=== PATIENT | female | born 1970 | race Caucasian/White ===

== ENCOUNTER → 2017-01-20 | Outpatient (CLI) | payer BC ==
--- NOTE | 2017-01-21 13:03 | MM ---
Reason for exam: screening (asymptomatic). Last mammogram was performed 1 year ago. History: Patient had first child at age 35. Family history of breast cancer in maternal grandmother at age 50. Physical Findings: A clinical breast exam by your physician is recommended on an annual basis and results should be correlated with mammographic findings. MG Screening Mammo w CAD Bilateral CC and MLO view(s) were taken. Prior study comparison: January 07, 2016, bilateral MG 3d screening mammo w/cad. January 01, 2015, bilateral MG screening mammo w CAD. January 08, 2013, bilateral digital screening mammo w/CAD. The breast tissue is extremely dense which could obscure a lesion on mammography. Finding: There are typically benign round calcifications. There is no discrete abnormality. ASSESSMENT: Benign, BI-RAD 2 RECOMMENDATION: Routine screening mammogram of both breasts in 1 year.
== END | disposition home or self-care (01) ==
LOC: RADMAMWWP 10:01
PROVIDERS: ATTEND Obstetrics & Gynecology
DX: Z12.31 Encounter for screening mammogram for malignant neoplasm of breast (principal); Z80.3 Family history of malignant neoplasm of breast

== ENCOUNTER → 2018-02-17 | Outpatient (CLI) | payer BC ==
--- NOTE | 2018-02-20 12:26 | MM ---
Reason for exam: screening (asymptomatic). Last mammogram was performed 1 year and 1 month ago. History: Patient had first child at age 35. Family history of breast cancer in maternal grandmother at age 50. Physical Findings: A clinical breast exam by your physician is recommended on an annual basis and results should be correlated with mammographic findings. MG Screening Mammo w CAD Bilateral CC and MLO view(s) were taken. Prior study comparison: January 20, 2017, bilateral MG screening mammo w CAD. January 07, 2016, bilateral MG 3d screening mammo w/cad. The breast tissue is extremely dense which could obscure a lesion on mammography. No significant changes when compared with prior studies. ASSESSMENT: Negative, BI-RAD 1 RECOMMENDATION: Routine screening mammogram of both breasts in 1 year.
== END | disposition home or self-care (01) ==
LOC: RADMAMWWP 09:40
PROVIDERS: ATTEND Obstetrics & Gynecology
DX: Z12.31 Encounter for screening mammogram for malignant neoplasm of breast (principal); Z80.3 Family history of malignant neoplasm of breast
CPT/HCPCS: 77067

== ENCOUNTER 2019-01-16 08:58 | Day surgery (SDC) | payer BC ==
[2019-01-11 10:22] VITALS: BMI 23.6
[~2019-01-16 08:58] MED LIST: LACTATED RINGERS 1,000 ML IV SCH; LIDOCAINE 1% 20 ML VIAL (10MG/ML) FOR IV START INTRADERMA PRN
[2019-01-16 09:23] VITALS: TEMP 98.6
[2019-01-16] MEDS ORDERED: LIDOCAINE 1% INJ 10MG/ML (20 ML MDV) ONE (10:16)
[2019-01-16] MEDS ORDERED: PROPOFOL 10 MG/ML 20 ML VIAL IV ONE (10:16)
--- NOTE | 2019-01-16 10:25 | P.GSHP ---
History of Present Illness H&P Date: 01/16/19 Chief Complaint: Screening colonoscopy This is a 48-year-old female who presents today for screening colonoscopy. Patient denies any significant GI complaints. Past Medical History Past Medical History: No Reported History History of Any Multi-Drug Resistant Organisms: None Reported Past Surgical History: No Surgical Hx Reported Additional Past Anesthesia/Blood Transfusion Reaction / Comment(s): NO PREVIOUS ANESTHESIA Smoking Status: Former smoker - Past Family History Mother Family Medical History: No Reported History Medications and Allergies Home Medications Medication Instructions Recorded Confirmed Type B Complex-Vit C-Vit E-Zinc [Z-Bec] 1 tab PO DAILY 01/11/19 01/11/19 History Cholecalciferol [Vitamin D3 (25 5,000 unit PO DAILY 01/11/19 01/11/19 History Mcg = 1000 Iu)] Ibuprofen [Motrin Ib] 200 - 400 mg PO DIRECTED PRN 01/11/19 01/11/19 History Multivitamin/Iron/Folic Acid 1 each PO DAILY 01/11/19 01/11/19 History [Centrum Adults Tablet] Vitamin C/Biotin [Hair, Skin and 1 tab PO DAILY 01/11/19 01/11/19 History Nails] Allergies Allergy/AdvReac Type Severity Reaction Status Date / Time No Known Allergies Allergy Verified 01/11/19 10:04 Surgical - Exam Vital Signs Temp Pulse Resp BP Pulse Ox 98.6 F 79 16 135/78 98 01/16/19 09:17 01/16/19 09:17 01/16/19 09:17 01/16/19 09:17 01/16/19 09:17 - General well developed, well nourished, no distress - Eyes PERRL - ENT normal pinna - Neck no masses - Respiratory normal expansion - Cardiovascular Rhythm: regular - Abdomen Abdomen: soft, non tender Assessment and Plan Assessment: We'll perform screening colonoscopy.
--- NOTE | 2019-01-16 10:37 | P.OP ---
Date of Procedure: 01/16/19 Preoperative Diagnosis: Screening colonoscopy Postoperative Diagnosis: Normal colon Procedure(s) Performed: Colonoscopy Anesthesia: MAC Surgeon: Shaheed Whyte Pathology: none sent Condition: stable Disposition: PACU Description of Procedure: The patient's placed on the endoscopy table in the lateral position. She received IV sedation. The digital rectal exam was performed which revealed no abnormalities. Flexible colonoscope was then placed patient anus passed rotator colon. The ileocecal valve was not clearly visualized secondary tortuous the bowel. The ascending colon, transverse colon, descending colon and sigmoid colon appeared normal. The scope was then brought back the rectum and this appeared normal. Scope was withdrawn for patient.
[2019-01-16 10:59] VITALS: RESP 18
[2019-01-16 11:14] VITALS: BP 134/68; PULSE 68
== END 2019-01-16 11:14 | disposition home or self-care (01) ==
LOC: ORWHC2ENDO 08:58
PROVIDERS: ATTEND Surgery
DX: Z12.11 Encounter for screening for malignant neoplasm of colon (principal); Q43.8 Other specified congenital malformations of intestine; Z87.891 Personal history of nicotine dependence
CPT/HCPCS: 81025; J2001; J2704; G0121

== ENCOUNTER → 2019-03-14 | Outpatient (CLI) | payer BC ==
--- NOTE | 2019-03-15 13:46 | MM ---
Reason for exam: screening (asymptomatic). Last mammogram was performed 1 year and 1 month ago. History: Patient had first child at age 35. Family history of breast cancer in maternal grandmother at age 50. Physical Findings: A clinical breast exam by your physician is recommended on an annual basis and results should be correlated with mammographic findings. MG Screening Mammo w CAD Bilateral CC and MLO view(s) were taken. Prior study comparison: February 17, 2018, bilateral MG screening mammo w CAD. January 20, 2017, bilateral MG screening mammo w CAD. The breast tissue is extremely dense which could obscure a lesion on mammography. No suspicious abnormality. No significant changes when compared with prior studies. ASSESSMENT: Negative, BI-RAD 1 RECOMMENDATION: Routine screening mammogram of both breasts in 1 year.
== END | disposition home or self-care (01) ==
LOC: RADMAMWWP 11:12
PROVIDERS: ATTEND Obstetrics & Gynecology
DX: Z12.31 Encounter for screening mammogram for malignant neoplasm of breast (principal)
CPT/HCPCS: 77067

== ENCOUNTER → 2020-04-24 | Outpatient (CLI) | payer BC ==
--- NOTE | 2020-04-25 14:01 | MM ---
Reason for exam: screening (asymptomatic). Last mammogram was performed 1 year and 1 month ago. History: Patient is postmenopausal and had first child at age 35. Family history of breast cancer in maternal grandmother at age 50. Physical Findings: A clinical breast exam by your physician is recommended on an annual basis and results should be correlated with mammographic findings. MG 3D Screening Mammo W/Cad Bilateral CC, MLO, and XCCL view(s) were taken. Prior study comparison: March 14, 2019, bilateral MG screening mammo w CAD. February 17, 2018, bilateral MG screening mammo w CAD. The breast tissue is extremely dense which could obscure a lesion on mammography. No significant changes when compared with prior studies. ASSESSMENT: Benign, BI-RAD 2 RECOMMENDATION: Routine screening mammogram of both breasts in 1 year.
== END | disposition home or self-care (01) ==
LOC: RADMAMWWP 16:07
PROVIDERS: ATTEND Obstetrics & Gynecology
DX: Z12.31 Encounter for screening mammogram for malignant neoplasm of breast (principal); Z80.3 Family history of malignant neoplasm of breast
CPT/HCPCS: 77063; 77067

== ENCOUNTER → 2021-04-27 | Outpatient (CLI) | payer BC ==
--- NOTE | 2021-04-29 08:52 | MM ---
Reason for exam: screening (asymptomatic). Last mammogram was performed 1 year ago. History: Patient had first child at age 35. Family history of breast cancer in maternal grandmother at age 50. Physical Findings: A clinical breast exam by your physician is recommended on an annual basis and results should be correlated with mammographic findings. MG 3D Screening Mammo W/Cad Bilateral CC and MLO view(s) were taken. Prior study comparison: April 24, 2020, bilateral MG 3d screening mammo w/cad. March 14, 2019, bilateral MG screening mammo w CAD. February 17, 2018, bilateral MG screening mammo w CAD. January 07, 2016, bilateral MG 3d screening mammo w/cad. The breast tissue is extremely dense which could obscure a lesion on mammography. Superior posterior right MLO asymmetric density incompletely disperses on 3D. ASSESSMENT: Incomplete: need additional imaging evaluation, BI-RAD 0 RECOMMENDATION: Special view mammogram and ultrasound of the right breast. (3D) [facility] will attempt to contact patient to return for supplemental views and ultrasound.
== END | disposition home or self-care (01) ==
LOC: RADMAMWWP 13:47
PROVIDERS: ATTEND Obstetrics & Gynecology
DX: Z12.31 Encounter for screening mammogram for malignant neoplasm of breast (principal); Z80.3 Family history of malignant neoplasm of breast
CPT/HCPCS: 77063; 77067

== ENCOUNTER → 2021-04-30 | Outpatient (CLI) | payer BC ==
--- NOTE | 2021-04-30 11:09 | MM ---
Reason for exam: additional evaluation requested from abnormal screening. Last mammogram was performed less than 1 month ago. History: Patient had first child at age 35. Family history of breast cancer in maternal grandmother at age 50. Physical Findings: Nurse did not find any significant physical abnormalities on exam. MG Work Up Mamm w CAD RT Spot compression MLO and LM view(s) were taken of the right breast. Prior study comparison: April 27, 2021, bilateral MG 3d screening mammo w/cad. April 24, 2020, bilateral MG 3d screening mammo w/cad. March 14, 2019, bilateral MG screening mammo w CAD. The breast tissue is heterogeneously dense. This may lower the sensitivity of mammography. The superior asymmetric density appears to disperse. There area very dense tissues elsewhere throughout the breast that become more defined. These results were verbally communicated with the patient and result sheet given to the patient on 04/30/21. ASSESSMENT: Incomplete: need additional imaging evaluation, BI-RAD 0 RECOMMENDATION: Ultrasound of the right breast.
--- NOTE | 2021-04-30 11:10 | USB ---
Reason for exam: additional evaluation requested from abnormal screening. History: Patient had first child at age 35. Family history of breast cancer in maternal grandmother at age 50. US Breast Workup RT Right complete breast ultrasound includes all four quadrants, the retroareolar region and axilla. Finding demonstrates no cystic or solid lesion seen. These results were verbally communicated with the patient and result sheet given to the patient on 04/30/21. ASSESSMENT: Benign, BI-RAD 2 RECOMMENDATION: Return to routine screening mammogram schedule for both breasts.
== END | disposition home or self-care (01) ==
LOC: RADMAMWWP 09:40
PROVIDERS: ATTEND Obstetrics & Gynecology
DX: R92.8 Other abnormal and inconclusive findings on diagnostic imaging of breast (principal)
CPT/HCPCS: 77065

== ENCOUNTER → 2021-05-16 | Outpatient (CLI) | payer BC ==
--- NOTE | 2021-05-16 13:36 | XR ---
Bilateral feet HISTORY: Foot pain. COMPARISON: None. Technique 6 views of the right and left feet were obtained. EYES: There is no fracture, dislocation or focal intraosseous abnormality. IMPRESSION: No significant abnormality seen.
[2021-05-16 16:48] LABS: C Reactive Protein <0.30 mg/dL (0.00-0.80); Estradiol <5.0 pg/mL; Testosterone <2.50 ng/mL (7.00-45.62)
== END | disposition home or self-care (01) ==
LOC: LABWHC1 08:14
PROVIDERS: ATTEND Family Medicine
DX: M89.8X7 Other specified disorders of bone, ankle and foot (principal)
CPT/HCPCS: 36415; 82627; 82670; 84403; 84481; 86038; 86140; 86663; 86769

== ENCOUNTER → 2022-04-21 | Outpatient (CLI) | payer BC ==
--- NOTE | 2022-04-21 16:17 | P.SLEEP ---
History of Present Illness DATE: 04/21/2022 CONSULTATION/NEW PATIENT EVALUATION HISTORY OF PRESENT ILLNESS/SLEEP-WAKE EVALUATION: 51 year old lady had been evaluated in the sleep center for significant excessive daytime sleepiness. Patient had the home sleep apnea test about 1 year ago which was negative for obstructive sleep apnea hypopnea syndrome. SLEEP SCHEDULE: Usually sleep schedule on weekdays 9:30 PM to 5:30 AM, during days off and 11 PM to 6:3011 AM. FALLING ASLEEP: No problems with falling asleep, although patient has TV set and bedroom. DURING SLEEP: Patient usually sleeps on the side position. According to her she snores. Patient wakes up from sleep 3 times usually without any nocturia. No history of hypnogogical hallucinations, sleep paralysis, or cataplexy. DURING THE DAY/WAKE STATE: In the morning patient wake up tired, feels sleepy during the day. Clarence sleepiness scale significantly increased to 11, patient take naps in the middle of the day. Patient seeing dreams during naps and feels restored after naps. Positive history of grinding teeth. PAST MEDICAL HISTORY: Mostly negative. PAST SURGICAL HISTORY: None. MEDICATIONS: None. SOCIAL HISTORY: Positive history of on and off smoking, stop smoking about 20 years ago, alcohol consumption occasional. FAMILY HISTORY: Negative according to patient. REVIEW OF SYSTEMS: Multiple awakenings from sleep, sleepiness during the day, snoring. No fevers. No double vision. No recent chest pain. No shortness of breath. No abdominal pain. No bleeding episodes. No blood in urine. No seizure episodes. PHYSICAL EXAMINATION: GENERAL: A pleasant patient without any distress. Patient looks sleepy. VITAL SIGNS: BP 112/77 , HR 71 , RR 14 , weight 129.0 pounds, height 5 foot 3- 1/3 inches, body mass index 22.6 . HEENT: PERRLA, EOMI. Evaluation of oropharynx showed tongue protrudes midline, low position of soft palate Mallampati 3, overbite 12 millimeters. NECK: Supple. No JVD. Thyroid is not palpable. 12-1/2 inches in circumference. LUNGS: Clear to percussion and to auscultation. Good air exchange. No wheezing or rhonchi. HEART: S1, S2 regular. No murmurs, gallops or rubs. ABDOMEN: Soft and nontender. Bowel sounds are present. No organomegaly appreciated. EXTREMITIES: No clubbing or cyanosis. ASSISTANT DIRECTOR OF PLANT OPERATIONS: Awake, alert, and oriented x3. Cranial nerves 2 to 7 intact. There is no fasciculation or atrophy noted. No focal deficits observed. ASSESSMENT: 1. Excessive daytime sleepiness, Clarence Sleepiness Scale increased to 11. Positive history of dreaming during naps. Patient looks sleepy during evaluation in the office. Rule out hypersomnia and narcolepsy without cataplexy. 2. Snoring, low position of soft palate Mallampati 3, overbite. Possible obstructive sleep apnea hypopnea syndrome, but the home sleep apnea test in May 2021 negative with apnea-hypopnea index of 0.9, although home sleep apnea test may underestimate severity of obstructive sleep apnea. 3 history of grinding teeth. PLAN: 1. Polysomnography for evaluation of patient's breathing during sleep with fallowing multiple sleep latency test for objective evaluation patient's symptoms of excessive daytime sleepiness. 2. Following plan after reading sleep studies. 3. Preferable position during sleep on the side. 4. No driving if patient feels any sleepiness. Patient is aware of civil and criminal liability for unsafe driving. 5. Sleep hygiene with regular sleep time for at least 7.5-8 hours. Thank you very much for referring this patient for consultation. Sincerely, Adalberto Blackmon MD, PhD, FAASM. Diplomat of [place] [employer], Sleep Medicine Board by [place] [employer] [place] [employer] Coding Clerk of [facility] [place] Past Medical History Past Medical History: No Reported History History of Any Multi-Drug Resistant Organisms: None Reported Past Surgical History: No Surgical Hx Reported Additional Past Anesthesia/Blood Transfusion Reaction / Comment(s): NO PREVIOUS ANESTHESIA Past Alcohol Use History: Occasional Additional Past Alcohol Use History / Comment(s): SMOKED 15 YEARS SOCIALLY, QUIT 2003 Past Drug Use History: None Reported - Past Family History Mother Family Medical History: No Reported History Medications and Allergies Home Medications Medication Instructions Recorded Confirmed Type B Complex-Vit C-Vit E-Zinc [Z-Bec] 1 tab PO DAILY 01/11/19 01/11/19 History Cholecalciferol [Vitamin D3 (25 5,000 unit PO DAILY 01/11/19 01/11/19 History Mcg = 1000 Iu)] Ibuprofen [Motrin Ib] 200 - 400 mg PO DIRECTED PRN 01/11/19 01/11/19 History Multivitamin/Iron/Folic Acid 1 each PO DAILY 01/11/19 01/11/19 History [Centrum Adults Tablet] Vitamin C/Biotin [Hair, Skin and 1 tab PO DAILY 01/11/19 01/11/19 History Nails] Allergies Allergy/AdvReac Type Severity Reaction Status Date / Time No Known Allergies Allergy Verified 01/11/19 10:04 Sleep Note - Sleep Note Sleep Note: Temperature: Pulse Rate: Respiratory Rate: Blood Pressure: SpO2: Height: Weight: BMI: Neck Circumference:
== END | disposition home or self-care (01) ==
LOC: SLEEP 15:10
PROVIDERS: ATTEND Internal Medicine
DX: R06.83 Snoring (principal)
CPT/HCPCS: 99211

== ENCOUNTER → 2022-05-03 | Outpatient (CLI) | payer BC ==
--- NOTE | 2022-05-04 08:10 | MM ---
Reason for Exam: Screening (asymptomatic). Last mammogram was performed 1 year(s) and 1 month(s) ago. Patient History: Menarche at age 12. First Full-Term at age 35. Late child-bearing (after 30). Maternal grandmother had breast cancer, age 50. Risk Values: Delia 5 year model risk: 1.4%. NCI Lifetime model risk: 10.6%. Prior Study Comparison: 04/24/2020 Bilateral Screening Mammogram, [facility]. 04/27/2021 Bilateral Screening Mammogram, [facility]. 04/30/2021 Right Diagnostic Mammogram, [facility]. Tissue Density: The breast tissue is extremely dense which could obscure a lesion on mammography. Findings: Analyzed By CAD. There is no suspicious group of microcalcifications in either breast. No suspicious mass within the right breast. Focal asymmetry within the left breast upper outer quadrant middle depth. Overall Assessment: Incomplete: need additional imaging evaluation, BI-RAD 0 Management: Diagnostic Mammogram of the left breast. A clinical breast exam by your physician is recommended on an annual basis and results should be correlated with mammographic findings. [facility] will attempt to contact patient to return for supplemental views and ultrasound if indicated. Electronically signed and approved by: Jean Saucedo D.O.
== END | disposition home or self-care (01) ==
LOC: RADMAMWWP 13:39
PROVIDERS: ATTEND Obstetrics & Gynecology
DX: Z12.31 Encounter for screening mammogram for malignant neoplasm of breast (principal); Z80.3 Family history of malignant neoplasm of breast
CPT/HCPCS: 77067

== ENCOUNTER → 2022-05-11 | Outpatient (CLI) | payer BC ==
--- NOTE | 2022-05-11 14:22 | MM ---
Reason for Exam: Additional evaluation requested from abnormal screening. Last screening mammogram was performed less than 1 month ago. Patient History: Menarche at age 12. First Full-Term at age 35. Late child-bearing (after 30). Maternal grandmother had breast cancer, age 50. Risk Values: Delia 5 year model risk: 1.4%. NCI Lifetime model risk: 10.6%. Prior Study Comparison: 04/27/2021 Bilateral Screening Mammogram, [facility]. 04/30/2021 Right Diagnostic Mammogram, [facility]. 05/03/2022 Bilateral MG screening mammo w CAD, [facility]. Tissue Density: Left: The breast tissue is heterogeneously dense. This may lower the sensitivity of mammography. Findings: Analyzed By CAD. In comparison to previous exams, there is no significant interval change. No suspicious mass, microcalcification, or architectural distortion. Overall Assessment: Benign, BI-RAD 2 Management: Screening Mammogram of both breasts in 1 year. A clinical breast exam by your physician is recommended on an annual basis and results should be correlated with mammographic findings. This exam should not preclude additional follow-up of suspicious palpable abnormalities. Results were given to the patient verbally at the time of exam. Electronically signed and approved by: Nikos Khan M.D. Radiologis
== END ==
LOC: RADMAMWWP 13:48
PROVIDERS: ATTEND Obstetrics & Gynecology
DX: R92.8 Other abnormal and inconclusive findings on diagnostic imaging of breast (principal)
CPT/HCPCS: 77065

== ENCOUNTER → 2022-07-22 | Outpatient (CLI) | payer BC ==
--- NOTE | 2022-07-22 12:00 | P.PN ---
Subjective DATE: 07/22/2022 FOLLOW UP VISIT. Patient returned to sleep center for follow-up visit to discuss results of sleep studies and following plan. I discuss results of sleep studies with patient in details diagnostic polysomnogram did not show any significant respiratory abnormalities. Apnea-hypopnea index was 0.9 which is perfect. No periodic limb movements have been documented. All stages of sleep have been documented during the sleep study. Sleep architecture was normal. Sleep efficiency was normal 92.5%. Multiple sleep latency test showed mean sleep latency 13.0 minutes, with no sleep onset REM periods, which exclude narcolepsy. At-home patient sometimes wakes up in the middle of the night and has difficulties to fall asleep. Hawks Sleepiness Scale today is 10, which is borderline. . MEDICATIONS: None During physical exam: GENERAL: A pleasant patient without any distress. VITAL SIGNS: BP 134/75, HR 84, RR 16 , weight 129, temperature 98.0, oxygen saturation at room air 98% . HEENT: PERRLA, EOMI. NECK: Supple. No JVD. LUNGS: Clear to percussion and to auscultation. Good air exchange. No wheezing or rhonchi. HEART: S1, S2 regular. ABDOMEN: Soft and nontender. EXTREMITIES: No clubbing or cyanosis. WRAPPER SIZER: Awake, alert, and oriented x3. No focal deficit. Impressions: 1. No significant respiratory abnormalities during sleep. Normal oxygenation during sleep. 2. No periodic limb movements. 3. Results of multiple sleep latency test did not show significant sleepiness at the present time. 4. Normal sleep architecture and sleep efficiency during the sleep test. 5. Patient wakes up at home in the middle of the night and has difficulties to fall asleep. Psychophysiological insomnia. Plan: 1. I discuss with patient the stimulus control and paradoxical intentioned techniques for treatment of insomnia. No watching clock in bedroom. 2. Sleep hygiene with regular time in bed for at least 8 hours. 3. Precautions related to driving. No driving if feel any sleepiness. Patient is aware about civil and criminal liability for unsafe driving, promised to follow recommendations. 4. Follow up visit in 12 months or earlier if patient has any problems. Thank you very much for allowing me to participate in the management of your patient. Adalberto Blackmon MD, PhD, FAASM. Diplomat of [place] [employer], Sleep Medicine Board by [place] [employer] Editor of [facility] [place]
== END ==
LOC: SLEEP 11:11
PROVIDERS: ATTEND Internal Medicine
DX: F51.04 Psychophysiologic insomnia (principal); Z87.891 Personal history of nicotine dependence
CPT/HCPCS: 99212

== ENCOUNTER → 2022-08-28 | Outpatient (CLI) | payer BC ==
--- NOTE | 2022-08-29 10:26 | MR ---
EXAMINATION TYPE: MR brain wo/w con DATE OF EXAM: 08/28/2022 3:25 PM CLINICAL INDICATION:Female, 52 years old with history of R41.3 AMNESIA; Headaches, memory loss, demy elinating disease. COMPARISON: None TECHNIQUE: Multi planar, multi sequence imaging was performed through the brain including: T1, T2, In version recovery, susceptibility weighted imaging and gradient echo imaging and Diffusion weighted im aging. The patient was then given intravenous contrast and multi planar, T1 fat-saturation images wer e obtained. IV Contrast: 6 cc Gadavist FINDINGS: The pemberton-white junctions, ventricular system, basal cisterns appear unremarkable. Diffusion-weighted imaging shows no evidence of restricted diffusion to suggest acute/subacute infarct. Intracranial art erial flow voids are maintained. Midline structures show no abnormality. Scattered foci of high T2 si gnal intensity are seen within the periventricular white matter. The susceptibility weighted images d o not reveal any evidence for micro-hemorrhage. After administration of gadolinium, no abnormal enhan cement is seen. The bone marrow signal is within normal limits. Paranasal sinuses and mastoid air cells: Mild scattered paranasal sinus disease. Visualized orbits: Orbital contents are intact. IMPRESSION: 1. No evidence for active demyelination, Nonspecific white matter changes 2. No evidence of intracranial mass, acute/subacute infarct, or abnormal enhancement.
== END | disposition home or self-care (01) ==
LOC: RADMRIMAIN 14:15
PROVIDERS: ATTEND Psychiatry & Neurology Neurology
DX: R90.82 White matter disease, unspecified (principal); R41.3 Other amnesia
CPT/HCPCS: 70553; A9585

== ENCOUNTER → 2023-05-12 | Outpatient (CLI) | payer BC ==
--- NOTE | 2023-05-13 11:35 | MM ---
Reason for Exam: Screening (asymptomatic). Last screening mammogram was performed 12 month(s) ago. Patient History: Menarche at age 12. First Full-Term at age 35. Late child-bearing (after 30). Maternal grandmother had breast cancer, age 50. Risk Values: Delia 5 year model risk: 1.4%. NCI Lifetime model risk: 10.4%. Prior Study Comparison: 04/30/2021 Right Diagnostic Mammogram, [facility]. 05/03/2022 Bilateral MG screening mammo w CAD, [facility]. 05/11/2022 Left MG work up mamm w CAD , [facility]. Tissue Density: The breast tissue is heterogeneously dense. This may lower the sensitivity of mammography. Findings: Analyzed By CAD. There is no suspicious group of microcalcifications or new suspicious mass in either breast. Overall Assessment: Benign, BI-RAD 2 Management: Screening Mammogram of both breasts in 1 year. . Patient should continue monthly self-breast exams. A clinical breast exam by your physician is recommended on an annual basis. This exam should not preclude additional follow-up of suspicious palpable abnormalities. Note on Delia scores and lifetime risk: 1. A Delia score greater than 3% is considered moderate risk. If this is the case, consider specialist referral to assess eligibility for a risk reducing agent. 2. If overall lifetime risk for the development of breast cancer is 20% or higher, the patient may qualify for future screening with alternating mammogram and breast MRI. Electronically signed and approved by: Mauro Parekh M.D. Radiologis
== END | disposition home or self-care (01) ==
LOC: RADMAMWWP 13:40
PROVIDERS: ATTEND Obstetrics & Gynecology
DX: Z12.31 Encounter for screening mammogram for malignant neoplasm of breast (principal); Z80.3 Family history of malignant neoplasm of breast
CPT/HCPCS: 77063; 77067

== ENCOUNTER → 2023-05-19 | Outpatient (CLI) | payer BC ==
--- NOTE | 2023-05-20 09:38 | CT ---
EXAMINATION TYPE: CT abdomen wo/w con CT DLP: 439 mGycm, Automated exposure control for dose reduction was used. DATE OF EXAM: 05/19/2023 4:26 PM COMPARISON: None CLINICAL INDICATION:Female, 52 years old with history of R16.0 hepatomegaly; liver mass TECHNIQUE: Axial CT of the abdomen and pelvis. Sagittal and coronal reformats were created on a [email or web address] workstation. Contrast used:100 mL of Isovue 300 without and with IV Contrast, (none if empty) Oral contrast used: with Oral Contrast (none if empty) FINDINGS: LOWER CHEST: Unremarkable ABDOMEN LIVER: There is a larger mass within the liver measuring 7.6 x 7.0 cm. On postcontrast and delayed im aging this demonstrates peripheral nodular progressive discontinuous enhancement. GALLBLADDER AND BILE DUCTS: Unremarkable. PANCREAS: Unremarkable. SPLEEN: Unremarkable. ADRENAL GLANDS: Unremarkable. KIDNEYS AND URETERS: No evidence of hydronephrosis or renal calculus. The ureters are unremarkable. Left renal cyst. Measuring up to 12 mm. PELVIS BLADDER: Unremarkable REPRODUCTIVE: Unremarkable. ABDOMEN & PELVIS STOMACH AND BOWEL: No evidence of bowel obstruction. PERITONEUM/RETROPERITONEUM: No evidence of pneumoperitoneum or free fluid. VASCULATURE: No evidence of aortic aneurysm. MUSCULOSKELETAL: No acute osseous abnormalities LYMPH NODES: No gross evidence for lymphadenopathy. 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
== END | disposition home or self-care (01) ==
LOC: RADCTMAIN 15:29
PROVIDERS: ATTEND Family Medicine
DX: R16.0 Hepatomegaly, not elsewhere classified (principal)
CPT/HCPCS: 74170; Q9967

== ENCOUNTER → 2023-05-31 | Outpatient (CLI) | payer BC ==
--- NOTE | 2023-05-31 07:02 | MR ---
EXAMINATION TYPE: MR liver wo/w con DATE OF EXAM: 05/31/2023 6:41 AM INDICATION: Patient age:Female; 52 years old; Reason for study: R16.0 hepatomegaly; PHH. COMPARISON: CT abdomen 05/19/2023 TECHNIQUE: Multiplanar multi-sequence imaging was performed without and with IV contrast/Gadavist . The patient was given 7 ccs of Gadavist intravenously and dynamic imaging was performed. Post IV con trast subtraction images were also submitted for review. FINDINGS: LOWER CHEST: No gross irregularity. ABDOMEN Liver: Left hepatic lobe 4 mm T2 hyperintense nonenhancing cyst (series 701, image 33). Right hepatic lobe 5 mm T2 hyperintense nonenhancing cyst (series 701, image 38).. Redemonstration of right hepati c lobe dominant T2 hyperintense lesion measuring 7.4 x 5.9 cm (series 601, image 35). This demonstrat es progressive peripheral discontinuous nodular enhancement corresponding to recent CT. This involves segment 6 and 7. Additionally there is a second small lesion with similar characteristics abutting t his lesion within the right hepatic lobe measuring 1.9 x 1.5 cm (series 601, image 40). It also demon strates progressive peripheral discontinuous nodular enhancement. Gallbladder and Bile ducts: Unremarkable. Pancreas: Unremarkable. Spleen: Unremarkable. Adrenal glands: Unremarkable. Kidneys: No hydronephrosis. There are 3 left renal cysts identified largest in the superior pole marisa uring 1.4 cm.. Stomach and Bowel: Unremarkable as visualized. Peritoneum: No evidence of pneumoperitoneum, free fluid, or adenopathy. Vasculature: Unremarkable. No aortic aneurysm. Abdominal wall: Unremarkable. Musculoskeletal: The osseous structures appear intact. IMPRESSION: Right hepatic lobe two adjacent lesions with largest measuring 7.4 cm. Both demonstrate enhancement c haracteristics consistent with benign hemangiomas.
== END | disposition home or self-care (01) ==
LOC: RADMRIMAIN 05:51
PROVIDERS: ATTEND Family Medicine
DX: D18.03 Hemangioma of intra-abdominal structures (principal); K76.89 Other specified diseases of liver; R16.0 Hepatomegaly, not elsewhere classified
CPT/HCPCS: 74183; A9585

== ENCOUNTER → 2023-06-07 | Outpatient (CLI) | payer BC ==
[2023-06-07 16:22] LABS: % Iron Saturation 36.53 (12.00-45.00); ALT 17 U/L (8-44); AST 21 U/L (13-35); Albumin 4.7 d/dL (3.8-4.9); Albumin/Globulin Ratio 1.81 Ratio (1.60-3.17); Alkaline Phosphatase 63 U/L (41-126); BUN/Creat Ratio 16.25 Ratio (12.00-20.00); Calcium 10.2 mg/dL (8.7-10.3); Carbon Dioxide 26.4 mmol/L (21.6-31.8); Chloride 104 mmol/L (96-109); Chol/HDL Ratio 2.79 Ratio; Globulin 2.6 d/dL (1.6-3.3); Glucose 82 mg/dL (70-110); Iron 118 UG/DL (50-170); LDL Cholesterol,Calculated 146.1 mg/dL (0.0-131.0); Potassium 4.8 mmol/L (3.5-5.5); Sodium 141 mmol/L (135-145); Total Bilirubin 0.4 mg/dL (0.3-1.2); Total Iron Binding Capacity 323 UG/DL (228-460); Total Protein 7.3 d/dL (6.2-8.2); Uric Acid 4.2 mg/dL (2.9-7.7); VLDL Calculation 18.18 mg/dL (5.00-40.00)
[2023-06-07 19:41] LABS: HIV 2 AB Non-Reactive (Non-Reactive); HIV AB P24 Non-Reactive (Non-Reactive); HIV P24 AG Non-Reactive (Non-Reactive)
[2023-06-08 06:04] LABS: Hepatitis B Surface Antigen Nonreactive; Hepatitis C IgG Antibody Nonreactive
[2023-06-08 15:34] LABS: ANA Pattern SPK
== END | disposition home or self-care (01) ==
LOC: LABWHC1 11:41
PROVIDERS: ATTEND Family Medicine
DX: Z11.4 Encounter for screening for human immunodeficiency virus [HIV] (principal); Z11.59 Encounter for screening for other viral diseases; M85.80 Other specified disorders of bone density and structure, unspecified site; E78.5 Hyperlipidemia, unspecified; D18.03 Hemangioma of intra-abdominal structures; R39.9 Unspecified symptoms and signs involving the genitourinary system; R53.83 Other fatigue
CPT/HCPCS: 36415; 80053; 80061; 82306; 82607; 82728; 82746; 83036; 83540; 83550; 84443; 84550; 86038; 86039; 86780; 86803; 87340; 87390

== ENCOUNTER → 2023-12-17 | Outpatient (CLI) | payer BC ==
[2023-12-17 13:13] LABS: Basophils # (A) 0.05 X 10*3/uL (0.00-0.10); Basophils % (A) 1.3 %; Eosinophils # (A) 0.09 X 10*3/uL (0.04-0.35); Eosinophils % (A) 2.4 %; HCT 40.8 % (37.2-46.3); HGB 13.4 g/dL (12.0-15.0); Lymphocytes # (A) 0.95 X 10*3/uL (0.90-5.00); Lymphocytes % (A) 25.3 %; MCH 30.9 pg (27.0-32.0); MCHC 32.8 g/dL (32.0-37.0); Mean Platelet Volume 10.7 FL (9.5-12.2); Monocytes # (A) 0.23 X 10*3/uL (0.20-1.00); Monocytes % (A) 6.1 %; NRBC Per 100 WBC 0 X 10*3/uL (0.00-0.01); Neutrophils # (A) 2.42 X 10*3/uL (1.80-7.70); Neutrophils % (A) 64.6 %; Platelet Count 233 X 10*3/uL (140-440); RBC 4.34 X 10*6/uL (4.10-5.20); RDW 12.6 % (11.5-14.5); WBC 3.75 X 10*3/uL (4.50-10.00)
--- NOTE | 2023-12-17 15:04 | XR ---
EXAMINATION TYPE: XR foot complete bilateral DATE OF EXAM: 12/17/2023 8:51 AM CLINICAL INDICATION:Female, 53 years old with history of XR L FT 3+V M79.671, G89.29, M79.672; PHH. Pain in both feet no injury COMPARISON: None. TECHNIQUE: 3 views of each foot obtained. FINDINGS: Osseous mineralization appears appropriate. No evidence of fracture, dislocation, or osseous destruct holland process. Joint spaces are maintained. No erosions. Soft tissues are unremarkable. No radiopaque f oreign body is seen. IMPRESSION: No acute radiographic abnormality
[2023-12-17 15:44] LABS: % Iron Saturation 28.25 (12.00-45.00); ALT 14 U/L (8-44); AST 20 U/L (13-35); Albumin 4.5 g/dL (3.8-4.9); Alkaline Phosphatase 57 U/L (41-126); BUN/Creat Ratio 22.86 Ratio (12.00-20.00); Calcium 9.6 mg/dL (8.7-10.3); Carbon Dioxide 21.2 mmol/L (21.6-31.8); Chloride 105 mmol/L (96-109); Chol/HDL Ratio 2.84 Ratio; Ferritin 96.2 ng/mL (10.0-291.0); Globulin 2.5 g/dL (1.6-3.3); Glucose 94 mg/dL (70-110); Iron 89 UG/DL (50-170); LDL Cholesterol,Calculated 160.6 mg/dL (0.0-131.0); Potassium 4.7 mmol/L (3.5-5.5); Sodium 143 mmol/L (135-145); Total Bilirubin <0.2 mg/dL (0.3-1.2); Total Iron Binding Capacity 315 UG/DL (228-460); VLDL Calculation 9.66 mg/dL (5.00-40.00)
== END | disposition home or self-care (01) ==
LOC: LABWHC1 08:03
PROVIDERS: ATTEND Family Medicine
DX: M79.671 Pain in right foot (principal); M79.672 Pain in left foot; E78.5 Hyperlipidemia, unspecified; G89.29 Other chronic pain; R76.8 Other specified abnormal immunological findings in serum; R53.83 Other fatigue
CPT/HCPCS: 36415; 80053; 80061; 82306; 82607; 82728; 82746; 83036; 83540; 83550; 84432; 84443; 85025; 86038; 86039; 86376

== ENCOUNTER → 2024-06-12 | Outpatient (CLI) | payer BC ==
--- NOTE | 2024-06-17 22:39 | BD ---
EXAMINATION TYPE: Axial Bone Density DATE OF EXAM: 06/12/2024 CLINICAL HISTORY: 53 years old Female. ICD-10 CODE: Z78.0 N95.1 POST ZULLY WITHOUT HRT, POST ZULLY SYM PTOMS , Additional History: Height: 62 Weight: 128 FRAX RISK QUESTIONS: 3. Menopause before 45: no at 52 RISK FACTORS HISTORY OF: slight scoliosis MEDICATIONS: vit d and calcium supplements, EXAM MEASUREMENTS: Bone mineral densitometry was performed using the [employer] System. Bone mineral density as measured about the Lumbar spine is: ----- L1-L4(G/cm2): 1.003 T Score Values are as follows: ----- L1: -1.9 ----- L2: -1.5 ----- L3: -0.8 ----- L4: -2.0 ----- L1-L4: -1.5 Z Score Values are as follows: ----- L1: -0.8 ----- L2: -0.4 ----- L3: 0.3 ----- L4: -0.9 ----- L1-L4: -0.4 Bone mineral density is her first dexa study at [facility]. Bone mineral density about the R hip (g/cm2): 0.743 Bone mineral density about the L hip (g/cm2): 0.771 T Score values are as follows: -----R Neck: -2.4 -----L Neck: -2.1 -----R Total: -2.1 -----L Total: -1.9 Z Score values are as follows: -----R Neck: -1.2 -----L Neck: -0.9 -----R Total: -1.2 -----L Total: -1.0 Bone mineral density is her first at [facility]. FRAX%s: The graph provided illustrates a 9.7% chance for a major osteoporotic fx and a 1.6% chance fo r the hips probability for fx in 10 years time. IMPRESSION: Osteopenia (T Score between -2.5 and -1). There is slightly increased risk of fracture and the patient may be considered for treatment. Re-Screen 2-5 years. NOTE: T-SCORE=SD OF THE YOUNG ADULT MEAN. [facility], , 06/17/2024 10:37 PM
--- NOTE | 2024-06-18 11:34 | MM ---
Reason for Exam: Screening (asymptomatic). Last mammogram was performed 1 year(s) and 1 month(s) ago. Patient History: Menarche at age 12. First Full-Term at age 35. Late child-bearing (after 30). Maternal grandmother had breast cancer, age 50. Risk Values: Delia 5 year model risk: 1.5%. NCI Lifetime model risk: 10.2%. Prior Study Comparison: 05/03/2022 Bilateral MG screening mammo w CAD, [facility]. 05/11/2022 Left MG work up mamm w CAD LT, [facility]. 05/12/2023 Bilateral MG 3D screening mammo w/cad, [facility]. Tissue Density: The breasts are extremely dense, which lowers the sensitivity of mammography. Findings: Analyzed By CAD. There is no suspicious group of microcalcifications or new suspicious mass in either breast. Overall Assessment: Negative, BI-RAD 1 Management: Screening Mammogram of both breasts in 1 year. . Patient should continue monthly self-breast exams. A clinical breast exam by your physician is recommended on an annual basis. This exam should not preclude additional follow-up of suspicious palpable abnormalities. Note on Delia scores and lifetime risk: 1. A Delia score greater than 3% is considered moderate risk. If this is the case, consider specialist referral to assess eligibility for a risk reducing agent. 2. If overall lifetime risk for the development of breast cancer is 20% or higher, the patient may qualify for future screening with alternating mammogram and breast MRI. [facility], , 06/18/2024 11:31 AM. Electronically signed and approved by: Mauro Parekh M.D. Radiologis
== END | disposition home or self-care (01) ==
LOC: RADMAMWWP 13:30
PROVIDERS: ATTEND Obstetrics & Gynecology
DX: Z12.31 Encounter for screening mammogram for malignant neoplasm of breast (principal); M85.89 Other specified disorders of bone density and structure, multiple sites; Z78.0 Asymptomatic menopausal state; Z80.3 Family history of malignant neoplasm of breast
CPT/HCPCS: 77063; 77067; 77080

== ENCOUNTER 2024-11-05 10:40 | Emergency (ER) | payer OTHER, BC ==
--- NOTE | 2024-11-05 12:38 | ED ---
Upper Extremity HPI - General Chief Complaint: Extremity Injury, Upper Stated Complaint: L hand injury Time Seen by Provider: 11/05/24 10:47 Source: patient Mode of arrival: ambulatory Limitations: no limitations - History of Present Illness Initial Comments: 54-year-old female presents to the ER for left finger pain. Patient states her left fifth digit got jammed between the door and cooler at work today. She denies anything puncturing the finger and is up-to-date on her tetanus vaccine. Denies use of blood thinners. Patient states bleeding is well-controlled with pressure. She denies any other injuries or complaints at this time. - Related Data Home Medications Medication Instructions Recorded Confirmed B Complex-Vit C-Vit E-Zinc [Z-Bec] 1 tab PO DAILY 01/11/19 01/11/19 Cholecalciferol [Vitamin D3 (25 5,000 unit PO DAILY 01/11/19 01/11/19 Mcg = 1000 Iu)] Ibuprofen [Motrin Ib] 200 - 400 mg PO DIRECTED PRN 01/11/19 01/11/19 Multivitamin/Iron/Folic Acid 1 each PO DAILY 01/11/19 01/11/19 [Centrum Adults Tablet] Vitamin C/Biotin [Hair, Skin and 1 tab PO DAILY 01/11/19 01/11/19 Nails] Allergies Allergy/AdvReac Type Severity Reaction Status Date / Time No Known Allergies Allergy Verified 11/05/24 10:47 Review of Systems ROS Statement: Those systems with pertinent positive or pertinent negative responses have been documented in the HPI. ROS Other: All systems not noted in ROS Statement are negative. Constitutional: Reports: fever, chills Hematological/Lymphatic: Denies: easy bleeding, easy bruising Past Medical History Past Medical History: No Reported History History of Any Multi-Drug Resistant Organisms: None Reported Past Surgical History: No Surgical Hx Reported Additional Past Anesthesia/Blood Transfusion Reaction / Comment(s): NO PREVIOUS ANESTHESIA Past Psychological History: No Psychological Hx Reported Smoking Status: Never smoker Past Alcohol Use History: None Reported Past Drug Use History: None Reported - Past Family History Mother Family Medical History: No Reported History General Exam Limitations: no limitations General appearance: alert Respiratory exam: Present: normal lung sounds bilaterally Cardiovascular Exam: Present: regular rate, normal rhythm Left Shoulder Exam: Present: normal inspection, full ROM Upper Arm exam: Present: normal inspection, full ROM Elbow exam: Present: normal inspection, full ROM Forearm Wrist exam: Present: normal inspection, full ROM Hand Wrist exam: Present: normal inspection, full ROM, other (Tenderness and mild swelling to left fifth digit. Bleeding is minimal. Margins are well- approximated not requiring sutures.) Vascular: Absent: vascular compromise Psychiatric exam: Present: normal affect, normal mood Course Vital Signs 11/05/24 11/05/24 10:44 12:49 Temperature 98.3 F 98.0 F Pulse Rate 81 80 Respiratory 18 20 Rate Blood Pressure 154/97 136/70 O2 Sat by Pulse 99 99 Oximetry Medical Decision Making - Medical Decision Making Was pt. sent in by a medical professional or institution (, PA, HAIRSPRING ASSEMBLER, urgent care, hospital, or custodial...) When possible be specific @ -No Did you speak to anyone other than the patient for history (EMS, parent, family, police, friend...)? What history was obtained from this source @ -No Did you review nursing and triage notes (agree or disagree)? Why? @ -I reviewed and agree with nursing and triage notes Were old charts reviewed (outside hosp., previous admission, EMS record, old EKG, old radiological studies, urgent care reports/EKG's, custodial records)? Report findings @ -No old charts were reviewed Differential Diagnosis? @ -Crush injury of finger, digital sprain, digital fracture, dislocation of d igit, puncture wound EKG interpreted by me (3pts min.). @ -As above X-rays interpreted by me (1pt min.). @ -None done CT interpreted by me (1pt min.). @ -None done U/S interpreted by me (1pt. min.). @ -None done What testing was considered but not performed or refused? (CT, X-rays, U/S, labs)? Why? @ -None What meds were considered but not given or refused? Why? @ -None Did you discuss the management of the patient with other professionals (professionals i.e. , PANCHO, HAIRSPRING ASSEMBLER, lab, RT, psych nurse, social work associate, veterinary pharmacologist, teacher, special technical operations officer, employment case manager)? Give summary @ -Case was discussed with the ED attending Dr. Estevez. Was smoking cessation discussed for >3mins.? @ -No Was critical care preformed (if so, how long)? @ -No Were there social determinants of health that impacted care today? How? (Homelessness, low income, unemployed, alcoholism, drug addiction, transportation, low edu. Level, literacy, decrease access to med. care, long term, rehab)? @ -No Was there de-escalation of care discussed even if they declined (Discuss DNR or withdrawal of care, Hospice)? DNR status @ -No What co-morbidities impacted this encounter? (DM, HTN, Smoking, COPD, CAD, Cancer, CVA, ARF, Chemo, Hep., AIDS, mental health diagnosis, sleep apnea, morbid obesity)? @ -None Was patient admitted / discharged? Hospital course, mention meds given and route, prescriptions, significant lab abnormalities, going to OR and other pertinent info. @ -Wound was irrigated and wrapped. X-ray did not show notable fracture or dislocation. Patient will be discharged home with self-care. Work note provided. Undiagnosed new problem with uncertain prognosis? @ -No Drug Therapy requiring intensive monitoring for toxicity (Heparin, Nitro, Insulin, Cardizem)? @ -No Were any procedures done? @ -No Diagnosis/symptom? @ -Crush injury of fifth digit Acute, or Chronic, or Acute on Chronic? @ -Acute Uncomplicated (without systemic symptoms) or Complicated (systemic symptoms)? @ -Default Side effects of treatment? @ -No Exacerbation, Progression, or Severe Exacerbation? @ -No Poses a threat to life or bodily function? How? (Chest pain, [place], [place], pneumonia, PE, COPD, DKA, ARF, appy, cholecystitis, CVA, Diverticulitis, Homicidal, Suicidal, threat to staff... and all critical care pts) @ -No Disposition Clinical Impression: Crushing injury of finger Disposition: HOME SELF-CARE Additional Instructions: Patient will be discharged home with self-care. Work note provided. Patient to follow-up with PCP in 1 to 2 days. Patient to return if symptoms worsen or persist. Referrals: Rosina Greene MD [Primary Care Provider] - 1-2 days Time of Disposition: 12:30
--- NOTE | 2024-11-05 12:39 | XR ---
EXAMINATION TYPE: XR finger LT DATE OF EXAM: 11/05/2024 CLINICAL INDICATION: Female, 54 years old with history of Trauma to Left 5th digit, pain TECHNIQUE: Frontal, lateral and oblique images of the fifth finger left hand are obtained. COMPARISON: None. FINDINGS: Lateral view suboptimal due to osseous overlap. There is no acute fracture/dislocation evid ent in the fifth finger left hand. The joint spaces in the fifth finger left hand appear within anahy l limits. The overlying soft tissue appears unremarkable. Overlying bandage material is present IMPRESSION: There is no acute fracture or dislocation in the fifth finger left hand. [facility], , 11/05/2024 12:37 PM
[2024-11-05 12:50] VITALS: BP 136/70; PULSE 80; RESP 20; TEMP 98
== END 2024-11-05 12:50 | disposition home or self-care (01) ==
LOC: EC 10:40
DX: S67.197A Crushing injury of left little finger, initial encounter (principal); W23.0XXA Caught, crushed, jammed, or pinched between moving objects, initial encounter
CPT/HCPCS: 99283

== ENCOUNTER → 2024-11-21 | Outpatient (CLI) | payer OTHER, BC ==
--- NOTE | 2024-11-21 14:05 | XR ---
EXAMINATION TYPE: XR finger LT DATE OF EXAM: 11/21/2024 1:59 PM COMPARISON: None. CLINICAL INDICATION: Female, 54 years old with history of S67.197D, pain, left fifth digit slammed i n door TECHNIQUE: 3 view(s) obtained. FINDINGS: No acute osseous abnormality. Joint spaces are preserved. Soft tissues appear normal. Follow up exams can be performed 7-10 days from acute trauma for continued pain. IMPRESSION: 1. No acute osseous abnormality detected. [facility], Workstation: [facility], 11/21/2024 2:03 PM
== END | disposition home or self-care (01) ==
LOC: RADXRMAIN 13:43
PROVIDERS: ATTEND Emergency Medicine
DX: S67.197D Crushing injury of left little finger, subsequent encounter (principal)